=== PATIENT | female | born 1985 | race Caucasian/White ===

== ENCOUNTER 2017-06-12 11:24 | Emergency (ER) | payer SELFPAY ==
[~2017-06-12] VITALS: Ht 162.6 cm; Wt 72.5 kg
[~2017-06-12 11:24] MED LIST: METO25TA35 PO
[2017-06-12 13:13] VITALS: BP 156/102
== END 2017-06-12 14:12 | disposition home or self-care (01) ==
LOC: ED 13:54
DX: O20.0 Threatened abortion (principal); O16.1 Unspecified maternal hypertension, first trimester; Z3A.01 Less than 8 weeks gestation of pregnancy
CPT/HCPCS: 36415; 76801; 81001; 84702; 85025; 86850; 86900; 87086; 99285

== ENCOUNTER 2017-06-29 20:40 | Emergency (ER) | payer SELFPAY ==
[~2017-06-29] VITALS: Ht 160 cm; Wt 71.0 kg
[2017-06-29 20:47] VITALS: BP 168/102
== END 2017-06-29 22:06 | disposition left against medical advice (07) ==
LOC: ED 22:00

== ENCOUNTER 2017-07-19 20:47 | Emergency (ER) | payer OTHER ==
[~2017-07-19] VITALS: Ht 160 cm; Wt 71.3 kg
[2017-07-19 20:54] VITALS: BP 157/119
== END 2017-07-19 22:48 | disposition left against medical advice (07) ==
LOC: ED 22:42
DX: Z53.21 Procedure and treatment not carried out due to patient leaving prior to being seen by health care provider (principal)

== ENCOUNTER 2017-12-20 17:38 | Emergency (ER) | payer MEDICAID, OTHER | END 2017-12-20 17:46 | disposition left against medical advice (07) | LOC: ED 17:40 | DX: I10 Essential (primary) hypertension (principal); Z53.21 Procedure and treatment not carried out due to patient leaving prior to being seen by health care provider ==

== ENCOUNTER 2017-12-24 11:57 | Emergency (ER) | payer MEDICAID ==
[~2017-12-24] VITALS: Ht 160 cm; Wt 65.0 kg
[2017-12-24 11:59] VITALS: BP 152/106
== END 2017-12-24 14:35 | disposition home or self-care (01) ==
LOC: ED 14:29
DX: K02.9 Dental caries, unspecified (principal); K08.89 Other specified disorders of teeth and supporting structures; J15.9 Unspecified bacterial pneumonia; I10 Essential (primary) hypertension
CPT/HCPCS: 71046; 99284

== ENCOUNTER 2018-09-13 12:08 | Emergency (ER) | payer MEDICAID ==
[~2018-09-13] VITALS: Ht 160 cm; Wt 68.2 kg
[2018-09-13 13:17] LABS: CULTURE INDICATED? YES; HCG UR SG 1.025 (1.003-1.030); MICROSCOPIC INDICATED
[2018-09-13 13:22] LABS: BASOPHILS # (AUTO) 0.03 x10^3/uL (0-0.1); BASOPHILS % (AUTO) 1 % (0-1); EOSINOPHILS # (AUTO) 0.06 x10^3/uL (0-0.4); EOSINOPHILS % (AUTO) 1 % (1-7); LYMPHOCYTES # (AUTO) 1.95 x10^3/uL (1-3.4); LYMPHOCYTES % (AUTO) 28 % (22-44); MD NO; MEAN CORPUSCULAR HEMOGLOBIN 33.3 pg (27.0-34.8); MEAN CORPUSCULAR HGB CONC 33.8 g/dL (32.4-35.8); MEAN CORPUSCULAR VOLUME 98.4 fL (80-100); MEAN PLATELET VOLUME 7.7 fL (7.4-10.4); MONOCYTES # (AUTO) 0.93 x10^3/uL (0.2-0.8); MONOCYTES % (AUTO) 14 % (2-9); NEUTROPHILS # (AUTO) 3.92 x10^3/uL (1.8-6.8); NEUTROPHILS % (AUTO) 57 % (42-75); PLATELET COUNT 244 x10^3/uL (130-400); RED BLOOD COUNT 4.84 x10^6/uL (3.82-5.3); RED CELL DISTRIBUTION WIDTH 12.6 % (9.6-15.2)
[2018-09-13 13:30] LABS: ALANINE AMINOTRANSFERASE 80 U/L (12-78); ALBUMIN 3.4 g/dL (3.4-5.0); ANION GAP 13 mmol/L (5-15); CHLORIDE 103 mmol/L (98-107)
[2018-09-13 13:33] LABS: ALKALINE PHOSPHATASE 147 U/L (45-117); BILIRUBIN,TOTAL 0.5 mg/dL (0.2-1.0)
[2018-09-13 15:06] VITALS: BP 162/109
== END 2018-09-13 15:16 | disposition home or self-care (01) ==
LOC: ED 13:01
DX: F10.220 Alcohol dependence with intoxication, uncomplicated (principal); I10 Essential (primary) hypertension; F32.9 Major depressive disorder, single episode, unspecified
CPT/HCPCS: 36415; 80053; 80307; 81001; 81025; 83690; 85025; 87077; 87086; 87147; 99284

== ENCOUNTER 2019-03-01 20:32 | Emergency (ER) | payer MEDICAID ==
[~2019-03-01] VITALS: Ht 160 cm; Wt 68.5 kg
[2019-03-01 20:37] VITALS: BP 157/108
--- NOTE | 2019-03-01 21:29 | NUR ---
PT TO X- [facility] AT BEDSIDE
== END 2019-03-01 22:22 | disposition home or self-care (01) ==
LOC: ED 22:10
DX: S52.134A Nondisplaced fracture of neck of right radius, initial encounter for closed fracture (principal); L02.413 Cutaneous abscess of right upper limb; F10.10 Alcohol abuse, uncomplicated; I10 Essential (primary) hypertension; F17.210 Nicotine dependence, cigarettes, uncomplicated; X58.XXXA Exposure to other specified factors, initial encounter; Y93.89 Activity, other specified; Y92.89 Other specified places as the place of occurrence of the external cause; Y99.8 Other external cause status
CPT/HCPCS: 29105; 71046; 99283

== ENCOUNTER 2019-05-11 22:16 | Inpatient (IN) | payer MEDICAID ==
[~2019-05-11] VITALS: Ht 160 cm; Wt 72.0 kg
[2019-05-11] MEDS ORDERED: ONDANSETRON ODT 4 MG ONE (22:48)
--- NOTE | 2019-05-11 22:57 | NUR ---
PT BACK FROM CT AND XRAY VIA [facility] AT THIS TIME. PT MEDICATED PER MAR FOR NAUSEA.
[2019-05-11] MEDS ORDERED: ONDANSETRON ODT 8 MG PO PRN (23:00)
[2019-05-11 23:11] LABS: BASOPHILS # (AUTO) 0.04 x10^3/uL (0-0.1); BASOPHILS % (AUTO) 1 % (0-1); EOSINOPHILS # (AUTO) 0.11 x10^3/uL (0-0.4); EOSINOPHILS % (AUTO) 1 % (1-7); LYMPHOCYTES # (AUTO) 2.96 x10^3/uL (1-3.4); LYMPHOCYTES % (AUTO) 32 % (22-44); MD NO; MEAN CORPUSCULAR HEMOGLOBIN 32.7 pg (27.0-34.8); MEAN CORPUSCULAR HGB CONC 32.6 g/dL (32.4-35.8); MEAN CORPUSCULAR VOLUME 100.3 fL (80-100); MEAN PLATELET VOLUME 6.8 fL (7.4-10.4); MONOCYTES # (AUTO) 1.35 x10^3/uL (0.2-0.8); MONOCYTES % (AUTO) 15 % (2-9); NEUTROPHILS # (AUTO) 4.81 x10^3/uL (1.8-6.8); NEUTROPHILS % (AUTO) 52 % (42-75); PLATELET COUNT 479 x10^3/uL (130-400); RED BLOOD COUNT 4.01 x10^6/uL (3.82-5.3); RED CELL DISTRIBUTION WIDTH 12.9 % (9.6-15.2)
[2019-05-11] MEDS ORDERED: LABETALOL 5MG/ML, 20ML IVPush STA (23:22)
[2019-05-11 23:23] LABS: ALANINE AMINOTRANSFERASE 31 U/L (12-78); ALBUMIN 2.3 g/dL (3.4-5.0); ANION GAP 11 mmol/L (5-15); CALCIUM 8.1 mg/dL (8.5-10.1); CHLORIDE 104 mmol/L (98-107)
[2019-05-11] MEDS ORDERED: LEVETIRACETAM 1,000 MG in SODIUM CHLORIDE 0.9% 100 ML IV ONE (23:30)
[2019-05-11 23:31] LABS: ALKALINE PHOSPHATASE 339 U/L (45-117); BILIRUBIN,TOTAL 0.3 mg/dL (0.2-1.0); CREATININE 0.76 mg/dL (0.55-1.02); TOTAL PROTEIN 8.1 g/dL (6.4-8.2)
--- NOTE | 2019-05-11 23:35 | NUR ---
PT WITH [facility]. SPOKE WITH NILES AT [facility]. RECIEVED VERBAL DENIAL TO TRANSFER PT.
[2019-05-11] MEDS ORDERED: SODIUM CHLORIDE 0.9% 1,000 ML IV SCH (23:56)
[2019-05-11 23:57] LABS: INTERNATIONAL NORMALIZED RATIO 1.03 (0.93-1.1); PROTHROMBIN TIME 10.8 Seconds (9.6-11.5)
[2019-05-11] MEDS ORDERED: LORazepam 2 MG/ML, 1ML ONE (23:57)
[2019-05-12] MEDS ORDERED: LORazepam 2 MG/ML, 1ML IVPush ONE
[2019-05-12] MEDS ORDERED: INSTRUCTION SEE COMMENTS XX ONE
[2019-05-12] MEDS ORDERED: ONDANSETRON 4 MG TABLET PO PRN
[2019-05-12] MEDS ORDERED: NICOTINE 7 MG/24 HR PATCH.TD24 TD SCH
[2019-05-12] MEDS ORDERED: POLYETHYLENE GLYCOL 17 GM PACKET PO PRN
[2019-05-12] MEDS ORDERED: PROMETHAZINE 25 MG/ML, 1ML IM PRN
[2019-05-12] MEDS ORDERED: ONDANSETRON 2MG/ML, 2ML IVPush PRN
[2019-05-12] MEDS ORDERED: DOCUSATE 100 MG CAPSULE PO PRN
[2019-05-12] MEDS ORDERED: morphine SULFATE 10 MG/ML, 1ML IVPush PRN
[2019-05-12] MEDS ORDERED: BISACODYL 10 MG SUPP PR PRN
--- NOTE | 2019-05-12 00:02 | NUR ---
PT MEDICATED PER MAR
[2019-05-12] MEDS ORDERED: LORazepam 2 MG/ML, 1ML IV PRN ×5 (00:30)
[2019-05-12] MEDS ORDERED: LORazepam 1MG TABLET PO PRN ×4 (00:30)
[2019-05-12] MEDS ORDERED: LORazepam 0.5MG TABLET PO PRN (00:30)
[2019-05-12] MEDS: LEVETIRACETAM 500 MG in SODIUM CHLORIDE 0.9% 100 ML IV SCH ×2 (00:30→12:01)
--- NOTE | 2019-05-12 00:38 | NUR ---
Pt sleeping, keppra infusing, pt on cont cardiac and pulse ox monitoring, arousable to verbal stimuli.
--- NOTE | 2019-05-12 00:49 | NUR ---
attempted report of pt to sherlyn viveros. rn is in another room and will call back for report.
--- NOTE | 2019-05-12 00:57 | NUR ---
REPORT OF PT TO GERMANIA IRAHETA. ALL QUESTIONS ANSWERED. PT EDUCATED ABOUT ROOM ASSINGMENT AND VERBALIZES UNDERSTANDING.
--- NOTE | 2019-05-12 01:08 | NUR ---
Note jennie in EDM - 05/12/19 at 0110 by REINIER pt transferred to floor with rn and tech x 2. pt attached to all vs machines. 2nd bolus keppra infusing. orders clarified with pharmacy because of issues loading meditech. jackeline plata verbalizes understanding of meds hung prior to transport of pt. all questions answered.
--- NOTE | 2019-05-12 01:10 | NUR ---
pt transferred to floor with rn and tech x 2. pt attached to all vs machines. 2nd bolus keppra infusing. orders clarified with pharmacy because of issues loading meditech. jackeline rn verbalizes understanding of meds hung prior to transport of pt. all questions answered.
[2019-05-12 01:51] VITALS: BP 146/107
[2019-05-12] MEDS: POTASSIUM CHLORIDE 20 MEQ, MAGNESIUM SULFATE 2 GM, THIAMINE 200 MG, MVI ADULT 10 ML, FO... IV SCH ×2 (02:22→14:28)
[2019-05-12] MEDS: ENALAPRILAT 1.25 MG/ML, 2ML IV SCH ×4 (02:23→18:30)
[2019-05-12] MEDS: OXYcodone IR 5MG TABLET PO PRN ×5 (03:53→22:08)
[2019-05-12 04:52] LABS: CALCIUM 7.6 mg/dL (8.5-10.1); CHLORIDE 106 mmol/L (98-107)
[2019-05-12 04:58] LABS: BASOPHILS # (AUTO) 0.06 x10^3/uL (0-0.1); BASOPHILS % (AUTO) 1 % (0-1); EOSINOPHILS # (AUTO) 0.16 x10^3/uL (0-0.4); EOSINOPHILS % (AUTO) 3 % (1-7); LYMPHOCYTES # (AUTO) 2.58 x10^3/uL (1-3.4); LYMPHOCYTES % (AUTO) 40 % (22-44); MD NO; MEAN CORPUSCULAR HEMOGLOBIN 33.1 pg (27.0-34.8); MEAN CORPUSCULAR HGB CONC 32.7 g/dL (32.4-35.8); MEAN CORPUSCULAR VOLUME 101.3 fL (80-100); MEAN PLATELET VOLUME 6.9 fL (7.4-10.4); MONOCYTES # (AUTO) 0.67 x10^3/uL (0.2-0.8); MONOCYTES % (AUTO) 10 % (2-9); NEUTROPHILS # (AUTO) 3.02 x10^3/uL (1.8-6.8); NEUTROPHILS % (AUTO) 47 % (42-75); PLATELET COUNT 439 x10^3/uL (130-400); RED BLOOD COUNT 3.76 x10^6/uL (3.82-5.3)
[2019-05-12 05:00] LABS: ALANINE AMINOTRANSFERASE 29 U/L (12-78); ALBUMIN 2.1 g/dL (3.4-5.0); ALKALINE PHOSPHATASE 303 U/L (45-117); ANION GAP 8 mmol/L (5-15); BILIRUBIN,TOTAL 0.3 mg/dL (0.2-1.0); CHOL/HDL RATIO 5.5; CHOLESTEROL, TOTAL 165 mg/dL (140-239); CREATININE 0.66 mg/dL (0.55-1.02); HDL CHOL % 18 % (28-40); HDL CHOLESTEROL (DIRECT) 30 mg/dL (40-60); LDL CHOLESTEROL,CALCULATED 115 mg/dL (54-169); LDL/HDL RATIO 3.8 (0.5-3.0); TOTAL PROTEIN 7.2 g/dL (6.4-8.2); TRIGLYCERIDES 101 mg/dL (50-200); VLDL CHOLESTEROL 20 mg/dL (0-25)
[2019-05-12] MEDS ORDERED: LORazepam 2 MG/ML, 1ML IVPush PRN (07:00)
[2019-05-12] MEDS: CHLORDIAZEPOXIDE 25 MG CAPSULE PO SCH ×3 (10:46→19:56)
[2019-05-12] MEDS: POTASSIUM CHLORIDE 20 MEQ TAB.ER.PRT PO SCH (17:24)
[2019-05-12] MEDS: LABETALOL 5MG/ML, 20ML IV PRN ×3 (19:48→22:02)
[2019-05-13] MEDS: LEVETIRACETAM 500 MG in SODIUM CHLORIDE 0.9% 100 ML IV SCH (00:10)
[2019-05-13] MEDS: ENALAPRILAT 1.25 MG/ML, 2ML IV SCH ×2 (00:11→06:10)
[2019-05-13] MEDS: LABETALOL 5MG/ML, 20ML IV PRN ×2 (03:22→05:28)
[2019-05-13] MEDS: OXYcodone IR 5MG TABLET PO PRN ×4 (04:42→19:15)
[2019-05-13 05:02] LABS: ANION GAP 6 mmol/L (5-15); CALCIUM 7.5 mg/dL (8.5-10.1); CHLORIDE 103 mmol/L (98-107); CREATININE 0.72 mg/dL (0.55-1.02)
[2019-05-13] MEDS ORDERED: SODIUM PHOSPHATE 20 MMOL in SODIUM CHLORIDE 0.9% 500 ML IV ONE (07:00)
[2019-05-13] MEDS: AMLODIPINE 5 MG TABLET PO SCH (09:03)
[2019-05-13] MEDS: POTASSIUM CHLORIDE 20 MEQ TAB.ER.PRT PO SCH (09:03)
[2019-05-13] MEDS: LEVETIRACETAM 500 MG TABLET PO SCH ×2 (09:03→19:37)
[2019-05-13] MEDS: CHLORDIAZEPOXIDE 25 MG CAPSULE PO SCH ×3 (09:03→19:37)
[2019-05-13] MEDS: LISINOPRIL 10 MG TABLET PO SCH ×2 (09:03→19:37)
[2019-05-13] MEDS ORDERED: ENALAPRILAT 1.25 MG/ML, 2ML IV PRN (09:30)
[2019-05-13] MEDS: POTASSIUM CHLORIDE 20 MEQ, MAGNESIUM SULFATE 2 GM, THIAMINE 200 MG, MVI ADULT 10 ML, FO... IV SCH ×3 (10:16→12:21)
[2019-05-13 19:36] VITALS: BP 158/132
[2019-05-13 20:41] VITALS: BP 145/99
[2019-05-14] VITALS (8 sets, daily range): BP systolic 123–170; BP diastolic 78–112
[2019-05-14] MEDS: OXYcodone IR 5MG TABLET PO PRN ×3 (01:23→20:32)
[2019-05-14] MEDS: LEVETIRACETAM 500 MG TABLET PO SCH ×2 (08:18→20:27)
[2019-05-14] MEDS: CHLORDIAZEPOXIDE 25 MG CAPSULE PO SCH (08:18)
[2019-05-14] MEDS: AMLODIPINE 5 MG TABLET PO SCH (08:18)
[2019-05-14] MEDS: LISINOPRIL 10 MG TABLET PO SCH ×2 (08:18→20:28)
[2019-05-14] MEDS ORDERED: SODIUM PHOSPHATE 20 MMOL in SODIUM CHLORIDE 0.9% 500 ML IV ONE (10:30)
[2019-05-14] MEDS: LORazepam 1MG TABLET PO PRN (11:54)
[2019-05-14] MEDS: POTASSIUM CHLORIDE 20 MEQ, MAGNESIUM SULFATE 2 GM, THIAMINE 200 MG, MVI ADULT 10 ML, FO... IV SCH (18:06)
[2019-05-15] VITALS: BP 152/100
[2019-05-15] MEDS: LORazepam 1MG TABLET PO PRN (03:36)
[2019-05-15] MEDS: OXYcodone IR 5MG TABLET PO PRN ×3 (03:36→20:22)
[2019-05-15 04:00] VITALS: BP 133/92
[2019-05-15 07:59] VITALS: BP 151/117
[2019-05-15] MEDS: LEVETIRACETAM 500 MG TABLET PO SCH ×2 (09:42→20:11)
[2019-05-15] MEDS: LISINOPRIL 10 MG TABLET PO SCH (09:42)
[2019-05-15] MEDS: AMLODIPINE 5 MG TABLET PO SCH (09:42)
[2019-05-15 12:30] VITALS: BP 148/111
[2019-05-15 17:19] VITALS: BP 145/106
[2019-05-15 19:08] VITALS: BP 136/100
[2019-05-15] MEDS: POTASSIUM CHLORIDE 20 MEQ, MAGNESIUM SULFATE 2 GM, THIAMINE 200 MG, MVI ADULT 10 ML, FO... IV SCH (20:11)
[2019-05-15] MEDS: LISINOPRIL 20 MG TABLET PO SCH (20:11)
[2019-05-16] VITALS: BP 146/106
[2019-05-16 04:00] VITALS: BP 128/89
[2019-05-16 06:20] VITALS: BP 123/85
[2019-05-16] MEDS ORDERED: BACITRACIN 50,000 UNIT ONE (07:03)
[2019-05-16] MEDS ORDERED: BUPIVACAINE/EPI 0.5% 1:200K ONE (07:03)
[2019-05-16] MEDS ORDERED: BACITRACIN OINT 500U/GM, 15 GM ONE (07:03)
[2019-05-16] MEDS ORDERED: THROMBIN 20,000 UNIT VIAL TP ONE (07:03)
[2019-05-16] MEDS ORDERED: MIDAZOLAM 1 MG/ML, 2ML ONE (07:06)
[2019-05-16] MEDS ORDERED: FENTANYL PF 250 MCG/5ML ONE (07:06)
[2019-05-16] MEDS ORDERED: ONDANSETRON 2MG/ML, 2ML IV PRN ×2 (07:30→10:30)
[2019-05-16] MEDS ORDERED: MIDAZOLAM 1 MG/ML, 2ML IV PRN (07:30)
[2019-05-16] MEDS ORDERED: OXYcodone 5 MG/5 ML ORAL.SOL UDC PO PRN (07:30)
[2019-05-16] MEDS ORDERED: METOPROLOL 1 MG/ML, 5ML IV PRN (07:30)
[2019-05-16] MEDS ORDERED: HYDROmorphone 2 MG/ML, 1ML IVPush PRN (07:30)
[2019-05-16] MEDS ORDERED: METOCLOPRAMIDE 5 MG/ML, 2ML IV PRN (07:30)
[2019-05-16] MEDS ORDERED: FENTANYL PF 100 MCG/2ML IV PRN (07:30)
[2019-05-16] MEDS ORDERED: LORazepam 2 MG/ML, 1ML IVPush PRN (07:30)
[2019-05-16] MEDS ORDERED: hydrALAzine 20 MG/ML, 1ML IV PRN ×2 (07:30→10:30)
[2019-05-16] MEDS ORDERED: LABETALOL 5MG/ML, 20ML IV PRN ×2 (07:30→10:30)
[2019-05-16] MEDS ORDERED: DEXAMETHASONE 4 MG/ML, 1ML ONE (07:33)
[2019-05-16] MEDS ORDERED: ROCURONIUM 10MG/ML,5ML ONE (07:33)
[2019-05-16] MEDS ORDERED: SUGAMMADEX 200 MG/2 ML IVPush ONE (07:33)
[2019-05-16] MEDS ORDERED: LIDOCAINE 2% 100MG/5ML SYRINGE ONE (07:33)
[2019-05-16] MEDS ORDERED: PROPOFOL 10 MG/ML, 20ML ONE (07:33)
[2019-05-16] MEDS ORDERED: BACITRACIN/POLYMIXIN B SULFATE OINT 14 GM ONE (08:19)
[2019-05-16] MEDS ORDERED: DIPHENHYDRAMINE 50 MG/ML, 1ML IM PRN (10:30)
[2019-05-16] MEDS ORDERED: MAGNESIUM HYDROXIDE 8%, 30ML UDC PO PRN (10:30)
[2019-05-16] MEDS ORDERED: DIPHENHYDRAMINE 50 MG/ML, 1ML IV PRN (10:30)
[2019-05-16] MEDS ORDERED: BISACODYL 10 MG SUPP PR PRN (10:30)
[2019-05-16] MEDS ORDERED: NS + 20MEQ KCL 1,000 ML IV SCH (10:30)
[2019-05-16] MEDS ORDERED: ENALAPRILAT 1.25 MG/ML, 2ML IV SCH (10:30)
[2019-05-16] MEDS ORDERED: HYDROmorphone 2 MG/ML, 1ML IM PRN (10:30)
[2019-05-16] MEDS ORDERED: ACETAMINOPHEN 650 MG SUPP PR PRN (10:30)
[2019-05-16] MEDS: ACETAMINOPHEN 325 MG TABLET PO PRN ×3 (10:55→21:52)
[2019-05-16] MEDS: LEVETIRACETAM 500 MG TABLET PO SCH ×2 (10:55→21:34)
[2019-05-16] MEDS: LISINOPRIL 20 MG TABLET PO SCH ×2 (10:55→21:38)
[2019-05-16] MEDS: AMLODIPINE 10 MG TAB PO SCH (10:55)
[2019-05-16] MEDS: CEFAZOLIN PMX 1GM/50ML 50 ML IVPB SCH ×2 (15:23→21:34)
[2019-05-16] MEDS: POTASSIUM CHLORIDE 20 MEQ, MAGNESIUM SULFATE 2 GM, THIAMINE 200 MG, MVI ADULT 10 ML, FO... IV SCH (17:42)
[2019-05-17] MEDS: OXYcodone IR 5MG TABLET PO PRN (00:45)
[2019-05-17 04:00] VITALS: BP 106/87
[2019-05-17 07:51] LABS: BASOPHILS # (AUTO) 0.03 x10^3/uL (0-0.1); BASOPHILS % (AUTO) 0 % (0-1); EOSINOPHILS % (AUTO) 2 % (1-7); LYMPHOCYTES # (AUTO) 2.78 x10^3/uL (1-3.4); LYMPHOCYTES % (AUTO) 26 % (22-44); MD NO; MEAN CORPUSCULAR HEMOGLOBIN 32.9 pg (27.0-34.8); MEAN CORPUSCULAR HGB CONC 32.6 g/dL (32.4-35.8); MONOCYTES # (AUTO) 1.38 x10^3/uL (0.2-0.8); MONOCYTES % (AUTO) 13 % (2-9); NEUTROPHILS # (AUTO) 6.45 x10^3/uL (1.8-6.8); NEUTROPHILS % (AUTO) 60 % (42-75); PLATELET COUNT 472 x10^3/uL (130-400); RED BLOOD COUNT 3.96 x10^6/uL (3.82-5.3); RED CELL DISTRIBUTION WIDTH 12.7 % (9.6-15.2)
[2019-05-17 07:58] LABS: ANION GAP 6 mmol/L (5-15); CALCIUM 8.3 mg/dL (8.5-10.1); CHLORIDE 105 mmol/L (98-107); CREATININE 0.61 mg/dL (0.55-1.02)
[2019-05-17] MEDS: OXYcodone/APAP 5/325MG TABLET PO PRN ×2 (09:01→14:14)
[2019-05-17] MEDS: LEVETIRACETAM 500 MG TABLET PO SCH ×2 (09:02→21:01)
[2019-05-17] MEDS: AMLODIPINE 10 MG TAB PO SCH (09:02)
[2019-05-17] MEDS: LISINOPRIL 20 MG TABLET PO SCH ×2 (09:02→21:01)
[2019-05-17] MEDS: SENNA/DOCUSATE TABLET PO SCH (09:03)
[2019-05-17] MEDS ORDERED: NS + 20MEQ KCL 1,000 ML IV SCH (10:30)
[2019-05-17 14:03] VITALS: BP 128/93
[2019-05-17 20:29] VITALS: BP 127/89
[2019-05-17] MEDS: ACETAMINOPHEN 325 MG TABLET PO PRN (21:01)
[2019-05-18 03:01] VITALS: BP 125/91
[2019-05-18] MEDS: ACETAMINOPHEN 325 MG TABLET PO PRN ×2 (03:18→08:03)
[2019-05-18 05:04] LABS: BASOPHILS # (AUTO) 0.04 x10^3/uL (0-0.1); BASOPHILS % (AUTO) 0 % (0-1); EOSINOPHILS # (AUTO) 0.25 x10^3/uL (0-0.4); EOSINOPHILS % (AUTO) 3 % (1-7); LYMPHOCYTES # (AUTO) 2.65 x10^3/uL (1-3.4); LYMPHOCYTES % (AUTO) 27 % (22-44); MD NO; MEAN CORPUSCULAR HEMOGLOBIN 33.5 pg (27.0-34.8); MEAN CORPUSCULAR VOLUME 101.4 fL (80-100); MEAN PLATELET VOLUME 7.1 fL (7.4-10.4); MONOCYTES # (AUTO) 1.22 x10^3/uL (0.2-0.8); MONOCYTES % (AUTO) 12 % (2-9); NEUTROPHILS # (AUTO) 5.85 x10^3/uL (1.8-6.8); NEUTROPHILS % (AUTO) 59 % (42-75); PLATELET COUNT 576 x10^3/uL (130-400); RED BLOOD COUNT 4.01 x10^6/uL (3.82-5.3); RED CELL DISTRIBUTION WIDTH 12.9 % (9.6-15.2)
[2019-05-18 05:12] LABS: ALANINE AMINOTRANSFERASE 24 U/L (12-78); ALBUMIN 2.1 g/dL (3.4-5.0); ANION GAP 4 mmol/L (5-15); CALCIUM 8.8 mg/dL (8.5-10.1); CHLORIDE 103 mmol/L (98-107); CREATININE 0.71 mg/dL (0.55-1.02)
[2019-05-18 05:23] LABS: ALKALINE PHOSPHATASE 243 U/L (45-117); BILIRUBIN,TOTAL 0.4 mg/dL (0.2-1.0); THYROID STIMULATING HORMONE 0.981 mIU/L (0.358-3.740); TOTAL PROTEIN 7.6 g/dL (6.4-8.2)
[2019-05-18 07:43] VITALS: BP 138/101
[2019-05-18] MEDS: SENNA/DOCUSATE TABLET PO SCH (08:03)
[2019-05-18] MEDS: LISINOPRIL 20 MG TABLET PO SCH (08:03)
[2019-05-18] MEDS: LEVETIRACETAM 500 MG TABLET PO SCH (08:04)
[2019-05-18] MEDS ORDERED: THIAMINE 100MG TABLET PO SCH (09:00)
[2019-05-18] MEDS ORDERED: AMLODIPINE 10 MG TAB PO SCH (09:00)
[2019-05-18] MEDS ORDERED: MULTIVITAMIN 1 TABLET PO SCH (09:00)
[2019-05-18] MEDS ORDERED: FOLIC ACID 1 MG TABLET PO SCH (09:00)
[2019-05-18 12:47] VITALS: BP 125/93
[2019-05-18] MEDS ORDERED: LISI-170 PO (12:58)
[2019-05-18] MEDS ORDERED: FOLI-17 PO (12:58)
[2019-05-18] MEDS ORDERED: MULT1TAB60 PO (12:58)
[2019-05-18] MEDS ORDERED: AMLO10TA8 PO (12:58)
[2019-05-18] MEDS ORDERED: LEVE500T53 PO (12:58)
[2019-05-18] MEDS ORDERED: THIA100T67 PO (12:58)
[2019-05-18] MEDS ORDERED: HYDR-3240 PO (14:53)
== END 2019-05-18 15:00 | disposition home or self-care (01) | DRG 25 ==
LOC: ED 23:55 → EDIP 23:56 → ED 05-12 00:03 → CCU 05-12 01:09 → 4EST 05-13 21:00 → 4WST 05-14 14:11 → CCU 05-16 09:16 → 4NOR 05-17 13:50 → DCLOUNGE 05-18 14:54
PROVIDERS: ADMIT Internal Medicine; ATTEND Internal Medicine
PROC: 00943ZZ Drainage of Intracranial Subdural Space, Percutaneous Approach (ICD-10-PCS; principal; 2019-05-16 07:30)
DX: S06.5X0A Traumatic subdural hemorrhage without loss of consciousness, initial encounter (principal); G93.41 Metabolic encephalopathy; E44.0 Moderate protein-calorie malnutrition; E87.1 Hypo-osmolality and hyponatremia; F10.231 Alcohol dependence with withdrawal delirium; D75.89 Other specified diseases of blood and blood-forming organs; E83.51 Hypocalcemia; E87.6 Hypokalemia; F10.220 Alcohol dependence with intoxication, uncomplicated; Y90.9 Presence of alcohol in blood, level not specified; F12.90 Cannabis use, unspecified, uncomplicated; F17.210 Nicotine dependence, cigarettes, uncomplicated; G44.319 Acute post-traumatic headache, not intractable; I10 Essential (primary) hypertension; I71.4 Abdominal aortic aneurysm, without rupture; K70.10 Alcoholic hepatitis without ascites; S06.4X0A Epidural hemorrhage without loss of consciousness, initial encounter; W18.2XXA Fall in (into) shower or empty bathtub, initial encounter; Y92.89 Other specified places as the place of occurrence of the external cause; Y99.8 Other external cause status; Z68.28 Body mass index [BMI] 28.0-28.9, adult; Y93.E1 Activity, personal bathing and showering; Z80.9 Family history of malignant neoplasm, unspecified; Z82.3 Family history of stroke; Z91.14 Patient's other noncompliance with medication regimen; Z88.1 Allergy status to other antibiotic agents
CPT/HCPCS: 36415; 73030; 99291; J7042; 70450; 71046; 80048; 80053; 80061; 80307; 82306; 82607; 83735; 83970; 84100; 84443; 84702; 85025; 85610; 85730; 87081; 93005; C1713; G0378; J0690; J1100; J1953; J2250; J2704; J3010; J3411; J3475; J3480; Q0162; J2060; J7040

== ENCOUNTER 2020-01-08 00:23 | Emergency (ER) | payer MEDICAID ==
[~2020-01-08] VITALS: Ht 160 cm; Wt 69.6 kg
[~2020-01-08 00:23] MED LIST changes: +AMLO10TA8 PO; +FOLI-17 PO; +HYDR-3240 PO; +LEVE500T53 PO; +LISI-170 PO; +MULT1TAB60 PO; +THIA100T67 PO
[2020-01-08] MEDS ORDERED: METOPROLOL TARTRATE 25 MG TABLET ONE (00:55)
[2020-01-08] MEDS ORDERED: LISINOPRIL 10 MG TABLET ONE (00:55)
[2020-01-08] MEDS ORDERED: METOPROLOL TARTRATE 25 MG TABLET PO ONE (01:00)
[2020-01-08] MEDS ORDERED: ALBUTEROL/IPRATROPIUM 2.5MG/0.5MG, 3 ML NPPB ONE (01:00)
[2020-01-08] MEDS ORDERED: LISINOPRIL 10 MG TABLET PO ONE (01:00)
[2020-01-08 01:08] LABS: MEAN CORPUSCULAR HEMOGLOBIN 33.8 pg (27.0-34.8); MEAN CORPUSCULAR VOLUME 99.6 fL (80-100); MEAN PLATELET VOLUME 7.2 fL (7.4-10.4); PLATELET COUNT 224 x10^3/uL (130-400); RED BLOOD COUNT 4.92 x10^6/uL (3.82-5.3); RED CELL DISTRIBUTION WIDTH 13.7 % (9.6-15.2)
[2020-01-08 01:21] LABS: ALBUMIN 3.3 g/dL (3.4-5.0); ANION GAP 9 mmol/L (5-15); CALCIUM 7.8 mg/dL (8.5-10.1); CHLORIDE 106 mmol/L (98-107); CREATININE 0.73 mg/dL (0.55-1.02)
[2020-01-08 01:23] LABS: MD YES
[2020-01-08 01:25] LABS: TROPONIN I < 0.015 ng/mL (0.000-0.045)
[2020-01-08 01:26] LABS: EOS#(MANUAL) 0.14 x10^3/uL (0.0-0.4); EOS% (MANUAL) 2 % (1-7); LYMPH#(MANUAL) 3.59 x10^3/uL (1-3.4); LYMPHS% (MANUAL) 52 % (22-44); MONOS#(MANUAL) 0.76 x10^3/uL (0.3-2.7); MONOS% (MANUAL) 11 % (2-9); SEG#(MANUAL) 2.42 x10^3/uL (1.8-6.8); SEGS% (MANUAL) 35 % (42-75)
[2020-01-08 01:27] LABS: <PLATELET ESTIMATE> ADEQUATE; <PLT MORPHOLOGY> NORMAL PLT MORPH; ANISOCYTOSIS 1+
[2020-01-08 02:28] VITALS: BP 128/89
--- NOTE | 2020-01-08 02:29 | NUR ---
PT RESTING WITH EYES CLOSED. MONITOR IN PLACE.
== END 2020-01-08 02:53 | disposition home or self-care (01) ==
LOC: ED 02:40
DX: J00 Acute nasopharyngitis [common cold] (principal); B34.9 Viral infection, unspecified; I10 Essential (primary) hypertension
CPT/HCPCS: 36415; 71045; 80048; 82040; 84484; 85025; 93005; 94640; 99284; J7620

== ENCOUNTER 2020-01-11 13:21 | Emergency (ER) | payer MEDICAID ==
[~2020-01-11] VITALS: Ht 160 cm; Wt 130.0 kg
[2020-01-11 13:32] VITALS: BP 130/93
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
--- NOTE | 2020-01-11 15:02 | NUR ---
Assisted up to bathroom. [place] Very unsteady. Cooperative. Meal tray ordered. [place] given
--- NOTE | 2020-01-11 15:31 | NUR ---
PT SPEAKING WITH VISITOR. PROVIDED LUNCH
== END 2020-01-11 16:24 | disposition home or self-care (01) ==
LOC: ED 15:00
DX: F10.120 Alcohol abuse with intoxication, uncomplicated (principal); I10 Essential (primary) hypertension; F17.200 Nicotine dependence, unspecified, uncomplicated; Y90.9 Presence of alcohol in blood, level not specified
CPT/HCPCS: 99283

== ENCOUNTER 2020-02-06 10:29 | Emergency (ER) | payer MEDICAID ==
[~2020-02-06] VITALS: Ht 160 cm; Wt 70.5 kg
[2020-02-06 10:56] VITALS: BP 134/92
[2020-02-06] MEDS ORDERED: SULFAMETH./TRIMETHOPRIM DS 800MG/160MG TABLET ONE (11:28)
[2020-02-06] MEDS ORDERED: CEPHALEXIN 500 MG CAPSULE ONE (11:28)
[2020-02-06] MEDS ORDERED: KETOROLAC 30 MG/1 ML ONE (11:32)
[2020-02-06] MEDS ORDERED: CEPHALEXIN 500 MG CAPSULE PO ONE (12:00)
[2020-02-06] MEDS ORDERED: KETOROLAC 30 MG/1 ML IM/IV ONE (12:00)
[2020-02-06] MEDS ORDERED: SULFAMETH./TRIMETHOPRIM DS 800MG/160MG TABLET PO ONE (12:00)
== END 2020-02-06 13:19 | disposition home or self-care (01) ==
LOC: ED 13:05
DX: L03.115 Cellulitis of right lower limb (principal); F10.20 Alcohol dependence, uncomplicated; I10 Essential (primary) hypertension; F17.200 Nicotine dependence, unspecified, uncomplicated; Y90.0 Blood alcohol level of less than 20 mg/100 ml
CPT/HCPCS: 73630; 96372; 99283; J1885

== ENCOUNTER 2021-01-30 06:49 | Emergency (ER) | payer MEDICAID ==
[~2021-01-30] VITALS: Ht 160 cm; Wt 70.6 kg
[~2021-01-30 06:49] MED LIST changes: +AMLO-211 PO; -AMLO10TA8 PO; -FOLI-17 PO; +FOLI1TAB32 PO; +HYDR-1067 PO; -HYDR-3240 PO; +MULT-449 PO; -MULT1TAB60 PO
--- NOTE | 2021-01-30 07:11 | NUR ---
first contact with pt. pt c/o vaginal bleeding started today after pt went to br. pt is 9 weeks . A1. lmp is 11/01/20. denies n/v/abd cramping. pt's aox4. resps even and unlabored. bp/spo2 monitors in place. call light within reach. pa at bedside to evaluate at this time.
--- NOTE | 2021-01-30 07:13 | NUR ---
pt amb to br with steady gait. urine cup given.
--- NOTE | 2021-01-30 07:24 | NUR ---
urine collected and ua sent to lab.
[2021-01-30 07:30] LABS: BASOPHILS % (AUTO) 1 % (0-1); EOSINOPHILS % (AUTO) 2 % (1-7); LYMPHOCYTES % (AUTO) 28 % (22-44); MEAN CORPUSCULAR HEMOGLOBIN 31.2 pg (27.0-34.8); MEAN CORPUSCULAR HGB CONC 33.7 g/dL (32.4-35.8); MEAN PLATELET VOLUME 6.3 fL (7.4-10.4); MONOCYTES % (AUTO) 8 % (2-9); NEUTROPHILS % (AUTO) 61 % (42-75); PLATELET COUNT 458 x10^3/uL (130-400); RED BLOOD COUNT 4.81 x10^6/uL (3.82-5.3); RED CELL DISTRIBUTION WIDTH 13.2 % (9.6-15.2)
[2021-01-30 07:35] LABS: MICROSCOPIC INDICATED
[2021-01-30 07:35] LABS: MD NO
[2021-01-30 07:39] LABS: ALBUMIN 3.9 g/dL (3.4-5.0); ANION GAP 10 mmol/L (5-15); CALCIUM 9.4 mg/dL (8.5-10.1); CHLORIDE 110 mmol/L (98-107); CREATININE 0.73 mg/dL (0.55-1.02)
--- NOTE | 2021-01-30 07:52 | NUR ---
pt in us at this time
[2021-01-30 08:13] VITALS: BP 114/75
--- NOTE | 2021-01-30 08:14 | NUR ---
pt back to room from us. pt denies any needs or concerns at this time. pt's aox4. resps even and unlabored. call light within reach.
== END 2021-01-30 08:51 | disposition home or self-care (01) ==
LOC: ED 08:45
DX: O20.0 Threatened abortion (principal); O10.911 Unspecified pre-existing hypertension complicating pregnancy, first trimester; O99.331 Smoking (tobacco) complicating pregnancy, first trimester; F17.200 Nicotine dependence, unspecified, uncomplicated; Z3A.09 9 weeks gestation of pregnancy
CPT/HCPCS: 36415; 76801; 80048; 81001; 82040; 84702; 85025; 86901; 99284

== ENCOUNTER 2021-07-01 00:03 | Emergency (ER) | payer MEDICAID ==
[~2021-07-01] VITALS: Ht 160 cm; Wt 70.9 kg
[~2021-07-01 00:03] MED LIST changes: -HYDR-1067 PO; +HYDR-2214 PO
[2021-07-01 00:05] VITALS: BP 151/118
--- NOTE | 2021-07-01 01:45 | NUR ---
ALARM INSTALLATION TECHNICIAN: PT NIL FOR RE-VITALIZATION. DERMATOLOGIST MANAGING PARTNER AWARE
--- NOTE | 2021-07-01 02:03 | NUR ---
DIP PAINTER: NIL X2 FOR RE-VITALIZATION
--- NOTE | 2021-07-01 02:13 | NUR ---
NILX3
== END 2021-07-01 02:15 | disposition left against medical advice (07) ==
LOC: ED 00:30
DX: R51.9 Headache, unspecified (principal); Z53.21 Procedure and treatment not carried out due to patient leaving prior to being seen by health care provider

== ENCOUNTER 2021-08-19 15:58 | Emergency (ER) | payer MEDICAID ==
--- NOTE | 2021-08-19 16:28 | NUR ---
[facility] dispatch larry contacted to have [employer] interview pt. They will send unit out. Pt aware and in agreement.
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
[2021-08-19 17:01] VITALS: BP 149/111
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
== END 2021-08-19 20:31 ==
LOC: ED 16:05
DX: T76.21XA Adult sexual abuse, suspected, initial encounter (principal); F41.1 Generalized anxiety disorder; R94.31 Abnormal electrocardiogram [ECG] [EKG]; I10 Essential (primary) hypertension
CPT/HCPCS: 93005; 99283